=== PATIENT | male | born 1965 | race American Indian/Alaskan Native ===

== ENCOUNTER 2018-11-17 03:07 | Emergency (ER) | payer OTHER ==
--- NOTE | 2018-11-17 03:31 | PDOC ---
History of Present Illness - General Stated Complaint: HIGH BP Time Seen by Provider: 11/17/18 03:30 - History of Present Illness Initial Comments: 52yo M with PMH of HTN, HLD, DM presenting to the ED after a high blood pressure reading. Patient reports that he checks his blood pressure anytime he feels poorly. He has had a headache throughout today and checked his blood pressure and saw that it was in the systolic 200s. Patient subsequently self- medicated with his blood pressure medication: metoprolol 100mg around 5pm. His headache relieved and blood pressure decreased to systolic 180s. Around 1am patient felt his headache worsen and took metoprolol 200mg and lisinopril 10mg. His headache relieved and he went to bed, but his headache returned and his blood pressure was high so he decided to come to the ED. Denies chest pain, shortness of breath, or vision changes. He last saw his rabbit dresser, Dr. Harris , and had a negative treadmill stress test. His primary care physician, Dr. Bradshaw, added lisinopril to the patients blood pressure regimen in late September. Denies fever or chills. Past History - Past Medical History Allergies/Adverse Reactions: Allergies Allergy/AdvReac Type Severity Reaction Status Date / Time erythromycin base Allergy Verified 11/17/18 03:37 Home Medications: Ambulatory Orders Valsartan [Diovan] 40 mg PO DAILY #30 tablet 11/17/18 - Immunization History Td Vaccination: Yes TDAP Vaccination: Yes Immunization Up to Date: Yes - Suicide/Smoking/Psychosocial Hx Smoking Status: No Smoking History: Never smoked Number of Cigarettes Smoked Daily: 0 Review of Systems - Review of Systems Comments:: Constitutional: no fever, no chills HEENT: no throat pain, no dysphagia Cardiovascular: no chest pain, no palpitations Respiratory: no cough, no shortness of breath Gastrointestinal: no abdominal pain, no nausea, no vomiting Genitourinary: no dysuria, no frequency Musculoskeletal: no myalgia, no arthralgia Skin: no rash, no itching Neurologic: +headache, no dizziness *Physical Exam - Physical Exam Comments: General: Awake, alert, and fully oriented, in no acute distress Head: No signs of trauma Eyes: EOMI, sclera anicteric ENT: Moist mucus membranes Neck: Normal ROM, supple Lungs: Lungs clear, Normal breath sounds Cardio: Regular rhythm, S1 and S2 present Abdomen: Soft, nontender. No guarding, no rebound, no masses Extremities: Normal range of motion, Distal pulses present SKIN: Warm, Dry, normal turgor Neurologic: Cranial nerves II through XII intact. Normal speech, sensation, strength, coordination, and gait. ED Treatment Course - LABORATORY CBC & Chemistry Diagram: 11/17/18 03:42 11/17/18 03:42 Medical Decision Making - Medical Decision Making 52yo M with PMH of HTN, HLD, DM presenting to the ED after a high blood pressure reading. -DDX including but not limited to hypertensive emergency/urgency, tension headache, migraine headache, ICH/SDH/EDH -Patient is well-appearing, with normal neurologic exam -BP 166/91 -CBC, CMP, Tpn, EKG -975 tylenol po and 40 diovan -Will reassess 11/17/18 04:26 EKG: rate 70, QTc 406, NSR, twi in lead III and aVF (also seen in previous EKG ) Tpn negative [id number], elevated Slightly elevated ALT and AST, but lower than values present in 2013 Pending CBC 11/17/18 04:58 Slight leukocytosis of 10.4. No anemia 11/17/18 05:11 Patient reports relief of headache, now 11/15 BP 120/85 Plan to discharge 11/17/18 05:41 *DC/Admit/Observation/Transfer Diagnosis at time of Disposition: Headache - Discharge Dispostion Disposition: HOME Condition at time of disposition: Stable - Prescriptions Prescriptions: Valsartan [Diovan] 40 mg PO DAILY #30 tablet - Referrals Referrals: Waldemar Bradshaw MD [Primary Care Provider] - - Patient Instructions Printed Discharge Instructions: DI for High Blood Pressure Additional Instructions: You came to the ED for a headache. CT imaging of your head did not show acute pathology. You can take [id number] tylenol or motrin for your headache. Follow the instructions on the medication bottle. Follow-up with you primary care physician in 5-7 days to discuss this ED visit and to further evaluate your headache. Your care is not complete until you do so. Call and make an appointment. Medical attention is required if: you experience persistent symptoms, severe headache, have a seizure, or have focal numbness or weakness. If you think you are having an emergency, call for emergency medical services or present to the emergency department right away - Post Discharge Activity
[2018-11-17 03:38] VITALS: BMI 25.2
--- NOTE | 2018-11-17 04:03 | PDOC ---
Attending Attestation - Resident Resident Name: Margarita Chavira - ED Attending Attestation I have performed the following: I have examined & evaluated the patient, The case was reviewed & discussed with the resident, I agree w/resident's findings & plan - HPI HPI: 11/17/18 06:18 Pt states that his BP shoots up every now and then. He takes 10 of lisinopril and metoprolol. Pt takes extrea meds when this happens. Comes to the ER today and BP is 160s systolic. We will treat with diovan here. He responded well. - Physicial Exam PE: 11/17/18 06:20 Agree with resident exam - Medical Decision Making 11/17/18 06:20 Pt will go home with a RX of diovan, but he is not sure his insurance will cover it. So we advised that he take an extra lisinopril in the event that his BP goes up. Pt needs to go to PMD for medication adjustment. Heart Score/ECG Review - ST and T Early Repolarization: No Non Specific ST-T Wave changes: No Flattened T Waves: Yes Prolonged Q-T Interval: No - ECG Impressions Normal ECG: No Non-specific ST Elevation: No Ischemic Changes: Yes (inferior flipped T waves) Bradycardia: No Torsades tyler Pointes: No WPW: No
[2018-11-17] MEDS ORDERED: VALSARTAN 40 MG TABLET (FP) PO ONE (04:04)
[2018-11-17] MEDS ORDERED: ACETAMINOPHEN 325 MG TABLET (FP) PO ONE (04:07)
[2018-11-17] MEDS ORDERED: VALSARTAN 80 MG TABLET (UD) ONE (04:17)
[2018-11-17] MEDS ORDERED: ACETAMINOPHEN 325 MG TABLET (FP) ONE (04:17)
[2018-11-17 04:24] LABS: BASO % 0.9 % (0-2.0); EOS % 3.9 % (0-4.5); HEMATOCRIT 41.4 % (35.4-49); HEMOGLOBIN 14.8 GM/dL (11.7-16.9); LYMPH % 16.1 % (8-40); MCH 31.5 pg (25.7-33.7); MCHC 35.7 g/dl (32.0-35.9); MEAN CELL VOLUME 88.2 fl (80-96); MEAN PLT VOLUME 8.2 fl (7.5-11.1); MONO % 4.4 % (3.8-10.2); NEUT % 74.7 % (42.8-82.8); PLATELET COUNT 249 K/MM3 (134-434); RBC 4.69 M/mm3 (4.00-5.60); RDW 12.8 % (11.9-15.9); WHITE BLOOD COUNT 10.4 K/mm3 (4.0-10.0)
[2018-11-17 04:52] LABS: ALBUMIN 3.7 g/dl (3.4-5.0); ALK PHOS 81 U/L (45-117); ANION GAP 6 MMOL/L (8-16); BILIRUBIN,TOTAL 0.4 mg/dL (0.2-1); BLOOD UREA NITROGEN 12 mg/dL (7-18); CALCIUM 8.7 mg/dL (8.5-10.1); CHLORIDE 102 mmol/L (98-107); CO2 29 mmol/L (21-32); CREATININE 1.3 mg/dL (0.55-1.3); GLUCOSE,RANDOM 263 mg/dL (74-106); POTASSIUM 4.9 mmol/L (3.5-5.1); SGOT/AST 38 U/L (15-37); SGPT/ALT 86 U/L (13-61); SODIUM 136 mmol/L (136-145); TOT PROT 7.4 g/dl (6.4-8.2)
[2018-11-17 05:21] VITALS: BP 120/85; PULSE 70; TEMP 98.7
--- NOTE | 2018-11-17 08:42 | EKG ---
Test Reason : Blood Pressure : / mmHG Vent. Rate : 070 BPM Atrial Rate : 070 BPM P-R Int : 116 ms QRS Dur : 074 ms QT Int : 376 ms P-R-T Axes : 042 047 001 degrees QTc Int : 406 ms NORMAL SINUS RHYTHM NONSPECIFIC T WAVE ABNORMALITY ABNORMAL ECG WHEN COMPARED WITH ECG OF 06-JAN-2013 04:33, NO SIGNIFICANT CHANGE WAS FOUND Confirmed by LARRY TONEY, FLAVIA ([id number]) on 11/17/2018 8:42:29 AM Referred By: Confirmed By:FLAVIA JUAREZ MD
== END 2018-11-17 05:49 | disposition home or self-care (01) ==
LOC: JER 03:07
DX: I10 Essential (primary) hypertension (principal); E78.5 Hyperlipidemia, unspecified; E11.65 Type 2 diabetes mellitus with hyperglycemia
CPT/HCPCS: 36415; 80053; 82550; 82553; 84484; 85025; 93005; 93010; 99283-25

== ENCOUNTER 2023-04-10 18:51 | Observation (INO) | payer OTHER ==
[2023-04-10] MEDS ORDERED: SODIUM CHLORIDE 1,000 ML IV SCH (20:00)
[2023-04-10 20:56] LABS: BASO % 0.5 % (0-2.0); EOS % 2.8 % (0-4.5); HEMATOCRIT 46.4 % (35.4-49); HEMOGLOBIN 15.5 GM/dL (11.7-16.9); LYMPH % 16.7 % (8-40); MCHC 33.5 g/dl (32.0-35.9); MEAN CELL VOLUME 89.6 fl (80-96); MEAN PLT VOLUME 8.2 fl (7.5-11.1); MONO % 5.3 % (3.8-10.2); NEUT % 74.7 % (42.8-82.8); PLATELET COUNT 240 10^3/uL (134-434); RBC 5.17 M/mm3 (4.00-5.60); RDW 13.1 % (11.9-15.9); WHITE BLOOD COUNT 11.7 K/mm3 (4.0-10.0)
[2023-04-10 21:05] LABS: INR 1.03 (0.83-1.09)
[2023-04-10 21:07] LABS: ACTIVATED PTT 33.2 SECONDS (25.2-36.5)
[2023-04-10 21:18] LABS: CALCIUM 9.3 mg/dL (8.5-10.1)
[2023-04-10 21:19] LABS: ALBUMIN 3.8 g/dl (3.4-5.0); BLOOD UREA NITROGEN 15.9 mg/dL (7-18)
[2023-04-10 21:22] LABS: CREATININE 1.4 mg/dL (0.55-1.3)
[2023-04-10 21:23] LABS: BILIRUBIN,TOTAL 0.3 mg/dL (0.2-1); TOT PROT 7.2 g/dl (6.4-8.2)
[2023-04-10] MEDS ORDERED: ASPIRIN 81 MG CHEWABLE TABLETS PO ONE (21:47)
[2023-04-10] MEDS ORDERED: ASPIRIN 81 MG CHEWABLE TABLETS ONE (23:17)
[2023-04-10 23:55] LABS: POTASSIUM 4.4 mmol/L (3.5-5.1)
[2023-04-10 23:56] LABS: CALCIUM 8.9 mg/dL (8.5-10.1)
[2023-04-11] LABS: CREATININE 1.3 mg/dL (0.55-1.3)
[2023-04-11 02:46] VITALS: BMI 22.5
[2023-04-11 07:41] VITALS: TEMP 97.8
[2023-04-11 09:12] LABS: BASO % 0.5 % (0-2.0); HEMATOCRIT 46.4 % (35.4-49); LYMPH % 28.7 % (8-40); MCH 30.8 pg (25.7-33.7); MCHC 34.5 g/dl (32.0-35.9); MEAN CELL VOLUME 89.3 fl (80-96); MEAN PLT VOLUME 8.2 fl (7.5-11.1); MONO % 6.4 % (3.8-10.2); NEUT % 60.4 % (42.8-82.8); PLATELET COUNT 225 10^3/uL (134-434); WHITE BLOOD COUNT 10.3 K/mm3 (4.0-10.0)
[2023-04-11 09:31] LABS: POTASSIUM 4.7 mmol/L (3.5-5.1)
[2023-04-11 09:34] LABS: CALCIUM 9.2 mg/dL (8.5-10.1)
[2023-04-11 09:38] LABS: CREATININE 1.2 mg/dL (0.55-1.3)
[2023-04-11] MEDS ORDERED: ASPIRIN 81 MG CHEWABLE TABLETS PO SCH (10:00)
[2023-04-11] MEDS ORDERED: OMEGA-3 ACID ETHYL ESTERS (FATTY-ACIDS) 1 GM CAPSULE (FP) PO SCH (10:00)
[2023-04-11 10:12] VITALS: BP 124/80; PULSE 80; RESP 18
[2023-04-11] MEDS ORDERED: INSULIN SLIDING SCALE (NOVOLOG) 1 VIAL SQ SCH (11:00)
[2023-04-11] MEDS ORDERED: INSULIN (NOVOLOG) ASPART 100 UNITS/ML 10ML VIAL ONE (12:14)
[2023-04-11] MEDS ORDERED: ATORVASTATIN CA 10 MG TABLET (FP) PO SCH (22:00)
== END 2023-04-11 15:28 | disposition home or self-care (01) ==
LOC: JER 18:51 → JERBED 21:50 → J4W 04-11 01:26
PROVIDERS: ADMIT Internal Medicine; ATTEND Internal Medicine
DX: G45.9 Transient cerebral ischemic attack, unspecified (principal); I10 Essential (primary) hypertension; E11.9 Type 2 diabetes mellitus without complications; E78.5 Hyperlipidemia, unspecified; G62.9 Polyneuropathy, unspecified
CPT/HCPCS: 36415; 70450-TC; 70551-TC; 71045-TC-FY; 80048; 80053; 80061; 82962; 83036; 84443; 84484; 85025; 85610; 85730; 86850; 86900; 86901; 87635; 93005; 93010; 99285-25; G0378

== ENCOUNTER 2023-08-15 00:56 | Emergency (ER) | payer OTHER ==
[2023-08-15 01:06] VITALS: BP 170/92; PULSE 101; RESP 18; TEMP 98; BMI 20.7
[2023-08-15 02:22] LABS: BASO % 0.6 % (0-2.0); EOS % 0.8 % (0-4.5); HEMATOCRIT 48.8 % (35.4-49); HEMOGLOBIN 16.8 GM/dL (11.7-16.9); LYMPH % 13.5 % (8-40); MCH 30.8 pg (25.7-33.7); MCHC 34.3 g/dl (32.0-35.9); MEAN CELL VOLUME 89.6 fl (80-96); MEAN PLT VOLUME 8.3 fl (7.5-11.1); MONO % 4.3 % (3.8-10.2); NEUT % 80.8 % (42.8-82.8); PLATELET COUNT 241 10^3/uL (134-434); RBC 5.45 M/mm3 (4.00-5.60); RDW 13.2 % (11.9-15.9); WHITE BLOOD COUNT 11.2 K/mm3 (4.0-10.0)
[2023-08-15 02:51] LABS: POTASSIUM 4.3 mmol/L (3.5-5.1)
[2023-08-15 02:53] LABS: ALBUMIN 4.3 g/dl (3.4-5.0); CALCIUM 9.6 mg/dL (8.5-10.1)
[2023-08-15 02:57] LABS: CREATININE 1.1 mg/dL (0.55-1.3)
[2023-08-15 02:58] LABS: BILIRUBIN,TOTAL 0.5 mg/dL (0.2-1)
== END 2023-08-15 03:23 | disposition home or self-care (01) ==
LOC: JER 00:56
DX: I10 Essential (primary) hypertension (principal); R25.1 Tremor, unspecified
CPT/HCPCS: 36415; 80053; 85025; 93005; 93010; 99284-25